=== PATIENT | female | born 1945 | race Caucasian/White ===

== ENCOUNTER 2018-02-17 12:26 | Emergency (ER) | payer OTHER, BC ==
[~2018-02-17] VITALS: Ht 167.6 cm; Wt 85.0 kg
[2018-02-17 13:05] LABS: BASOPHIL (%) 0.4 % (0-1); EOSINOPHIL (%) 4.3 % (0-5); EOSINOPHIL COUNT 0.2 K/uL (0-0.3); HEMATOCRIT 36.5 % (36.0-46.0); HEMOGLOBIN 12.4 G/DL (11.9-15.5); IMMATURE GRANULOCYTE (%) 0.2 % (0.0-0.7); LYMPHOCYTE (%) 31.3 % (15-42); LYMPHOCYTE COUNT 1.5 K/uL (1.0-2.8); MCH 31.7 PG (29.0-34.0); MCV 93.4 FL (83-99); MONOCYTE (%) 10.3 % (3-12); MONOCYTE COUNT 0.5 K/uL (0-0.8); NEUTROPHIL (%) 53.5 % (45-76); NEUTROPHIL COUNT 2.6 K/uL (1.8-6.4); PLATELET COUNT 298 K/uL (156-360); RBC DIS.WIDTH-CV 13.4 % (11.8-14.6); RBC DIS.WIDTH-SD 45.4 % (39-53); RED BLOOD COUNT 3.91 M/uL (3.80-5.20); WHITE BLOOD COUNT 4.9 K/uL (4.1-10.2)
[2018-02-17 13:17] LABS: CHLORIDE 98 mEq/L (99-109); POTASSIUM 3.4 mEq/L (3.7-5.4); SODIUM 139 mEq/L (136-147)
[2018-02-17 13:19] LABS: GLUCOSE 162 mg/dL (70-99)
[2018-02-17 13:23] LABS: CREATININE 1.1 mg/dL (0.6-1.3); GFR ESTIMATE (CALCULATED) 52 mL/min/
[2018-02-17 13:24] LABS: UREA NITROGEN (BUN) 29 mg/dL (9-23)
[2018-02-17 14:17] LABS: ALBUMIN 3.9 g/dL (3.2-4.8)
[2018-02-17 14:18] LABS: MAGNESIUM 2.1 mg/dL (1.3-2.7)
[2018-02-17 14:22] LABS: TOTAL BILIRUBIN 0.3 mg/dL (0.0-1.0)
[2018-02-17 14:23] LABS: ALKALINE PHOSPHATASE 82 IU/L (3-129)
[2018-02-17 14:25] LABS: AST (GOT) 22 IU/L (2-34)
[2018-02-17 14:26] LABS: ALT (GPT) 18 IU/L (3-49); DIRECT BILIRUBIN 0.1 mg/dL (0.0-0.3)
[2018-02-17 14:27] LABS: LIPASE 58 U/L (1.0-51.0)
[2018-02-17 14:28] LABS: TROP-I INTERPRETATION NEGATIVE; TROPONIN-I < 0.01 ng/mL (0.0-0.30)
[2018-02-17 15:59] LABS: APPEARANCE CLEAR ((CLEAR)); BILIRUBIN NEGATIVE; BLOOD SMALL; COLOR YELLOW ((YELLOW)); GLUCOSE (STRIP) NEGATIVE; KETONES NEGATIVE; LEUKOCYTES NEGATIVE; NITRITE NEGATIVE; PROTEIN (STRIP) NEGATIVE; SPECIFIC GRAVITY 1.018 (1.000-1.030); UROBILINOGEN 0.2 MG/DL (0.2-1.0)
[2018-02-17 16:06] LABS: BACTERIA NONE SEEN /HPF; EPITHELIAL CELLS RARE /HPF; MUCUS TRACE /LPF; RED BLOOD CELLS 0-5 /HPF (0-5); UCUL ADDED? YES
[2018-02-17] MEDS ORDERED: ZANTAC150 MG PO (17:21)
[2018-02-17 17:38] VITALS: BP 130/84
== END 2018-02-17 17:37 | disposition home or self-care (01) ==
LOC: EME 12:26
DX: R42 Dizziness and giddiness (principal); R10.13 Epigastric pain; T40.4X5A Adverse effect of other synthetic narcotics, initial encounter; R22.42 Localized swelling, mass and lump, left lower limb; G89.29 Other chronic pain; M54.9 Dorsalgia, unspecified; E11.40 Type 2 diabetes mellitus with diabetic neuropathy, unspecified; I10 Essential (primary) hypertension; Z90.49 Acquired absence of other specified parts of digestive tract; Z96.651 Presence of right artificial knee joint; Z98.1 Arthrodesis status
CPT/HCPCS: 70450; 71046; 74177; 80048; 80076; 81003; 83605; 83690; 83735; 84484; 85025; 87086 GA; 93005; 93971; 99281; 99284; J2405; J7040; S0028